=== PATIENT | female | born 1935 | race Two or more races ===

== ENCOUNTER 2018-06-02 12:29 | Emergency (ER) | payer OTHER ==
[~2018-06-02] VITALS: Ht 160 cm; Wt 81.6 kg
[~2018-06-02 12:29] MED LIST: ASA81 MG; CARTIA XT300 MG; COUMADIN5 MG; HYZAAR 100-251 UDTAB; METOPROLOL TAR100 MG; PRADAXA75 MG PO; SYNTHROID75 MCG
[2018-06-02] MEDS ORDERED: ELIQUIS5 MG (13:26)
== END 2018-06-02 17:03 | disposition home or self-care (01) ==
LOC: ER 12:29
DX: H10.11 Acute atopic conjunctivitis, right eye (principal)

== ENCOUNTER 2018-08-18 14:02 | Emergency (ER) | payer OTHER ==
[~2018-08-18] VITALS: Ht 160 cm; Wt 86.2 kg
[~2018-08-18 14:02] MED LIST changes: +ELIQUIS5 MG
== END 2018-08-18 22:22 | disposition home or self-care (01) ==
LOC: ER 14:02 → CPU-OBS 14:09 → ER 14:09
DX: R07.89 Other chest pain (principal); I48.91 Unspecified atrial fibrillation

== ENCOUNTER 2019-04-16 13:21 | Outpatient (CLI) | payer OTHER | END 2019-04-16 13:24 | disposition home or self-care (01) | LOC: NUCLEAR 13:21 | DX: I50.89 Other heart failure (principal) | CPT/HCPCS: 78472; 78496; A9560 ==